=== PATIENT | female | born 1955 | race African-American/Black ===

== ENCOUNTER 2024-05-31 18:54 | Emergency (ER) | payer MEDICARE, MEDICAID ==
[~2024-05-31] VITALS: Ht 162.6 cm; Wt 50.0 kg
[2024-05-31] MEDS ORDERED: ALBUTEROL (19:10)
[2024-05-31] MEDS ORDERED: PREDNISONE (19:10)
[2024-05-31] MEDS ORDERED: COMBIVENT (19:10)
[2024-05-31] MEDS: METHYLPREDNISOLONE SOD SUCC 125MG/2ML (ACT-O-VIAL) IV STA (21:11)
[2024-05-31 21:35] LABS: BASOPHILS % 0.4 % (0.0-2.0); EOSINOPHILS % 0.2 % (0.0-5.0); HEMATOCRIT. 37.6 % (36.0-48.0); LYMPHOCYTES % 13.9 % (20.0-50.0); MEAN CORPUSCULAR HEMOGLOBIN 30.8 pg (28.0-32.0); MEAN CORPUSCULAR HGB CONC 31.8 g/dL (31.0-37.0); MEAN CORPUSCULAR VOLUME 96.6 fL (81.0-99.0); MEAN PLATELET VOLUME 8.1 fl (7.4-10.4); MONOCYTES % 7.2 % (2.0-8.0); NEUTROPHILS % 78.3 % (40.0-76.0); PLATELET 289 x1000/uL (130-400); RED BLOOD CELL COUNT 3.89 mill/uL (4.2-5.4); RED CELL DISTRIBUTION WIDTH 15.9 % (11.6-14.6)
[2024-05-31 21:41] LABS: CHLORIDE 104 mEq/L (98-107); POTASSIUM 3.7 mEq/L (3.5-5.1); SODIUM 143 mEq/L (136-145)
[2024-05-31 21:42] LABS: CALCIUM 9.7 mg/dL (8.7-10.4); CARBON DIOXIDE 31 mEq/L (21-32)
[2024-05-31 21:46] LABS: INR 1.3; PROTHROMBIN TIME 13.8 sec (9.6-11.0)
[2024-05-31 21:47] LABS: CREATININE 0.7 mg/dL (0.6-1.0); GLUCOSE 97 mg/dL (70-105); UREA NITROGEN BLOOD 15 mg/dL (9-23)
[2024-05-31 21:49] VITALS: PULSE 116; RESP 20; O2SAT 95
[2024-05-31 21:49] LABS: ALANINE AMINOTRANSFERASE 18 IU/L (10-49); ALBUMIN 3.8 g/dL (3.2-4.8); ASPARTATE AMINOTRANSFERASE 30 IU/L (<34); BILIRUBIN TOTAL 0.3 mg/dL (0.1-1.0); PROTEIN TOTAL 6.8 g/dL (6.0-8.3); TROPONIN I HIGH SENSITIVITY 15 ng/L (3.0-34)
[2024-05-31] MEDS: ALBUTEROL (0.083%) 2.5MG/3ML NEB HHN STA (21:49)
[2024-05-31] MEDS: IPRATROPIUM BROMIDE (0.02%) 0.5MG/2.5ML NEB HHN STA (21:50)
[2024-05-31 22:01] LABS: BILIRUBIN DIRECT < 0.1 mg/dL (<=3.0)
[2024-05-31 23:10] VITALS: O2SAT 93
[2024-05-31] MEDS ORDERED: LEVOFLOXACIN 750MG PREMIX 150 ML IV ONE (23:45)
[2024-06-01] MEDS: AZITHROMYCIN 500MG/250ML 250 ML IV STA (00:03)
[2024-06-01] MEDS ORDERED: DOCUSATE SODIUM 100MG CAPSULE PO PRN (01:00)
[2024-06-01] MEDS ORDERED: IPRATROPIUM/ALBUTEROL 0.5-3(2.5)MG/3ML NEB HHN PRN (01:00)
[2024-06-01] MEDS ORDERED: ACETAMINOPHEN 325MG TABLET PO PRN (01:00)
[2024-06-01] MEDS ORDERED: POTASSIUM CHLORIDE 20MEQ TABLET SR PO PRN (01:00)
[2024-06-01] MEDS ORDERED: HYDROCODONE/ACETAMINOPHEN 5/325MG TABLET PO PRN (01:00)
[2024-06-01] MEDS ORDERED: MAGNESIUM/ALUMINUM HYDROXIDE/SIMETHICONE 30ML UDC PO PRN (01:00)
[2024-06-01] MEDS ORDERED: ONDANSETRON HCL 4MG/2ML INJ IV PRN (01:00)
[2024-06-01] MEDS ORDERED: CLONIDINE 0.1MG TABLET PO PRN (01:00)
[2024-06-01] MEDS: CEFTRIAXONE 1GM/50ML 50 ML IV ONE (01:11)
[2024-06-01 04:10] LABS: TROPONIN I HIGH SENSITIVITY 15 ng/L (3.0-34)
[2024-06-01] MEDS: ENOXAPARIN 40MG/0.4ML SYR SUBCUT SCH (04:47)
[2024-06-01] MEDS: CEFTRIAXONE 1GM/50ML 50 ML IV SCH (04:47)
[2024-06-01] MEDS ORDERED: NALOXONE HCL 0.4MG/ML VIAL IV PRN (06:45)
[2024-06-01] MEDS: ENOXAPARIN 30MG/0.3ML SYR SUBCUT SCH (07:00)
[2024-06-01 08:30] VITALS: O2SAT 94
[2024-06-01 09:50] VITALS: BP 126/75; PULSE 99; RESP 26; TEMP 37.16964
[2024-06-01 10:10] VITALS: O2SAT 98
[2024-06-02] MEDS ORDERED: CEFTRIAXONE 1GM/50ML 50 ML IV SCH (01:00)
[2024-06-25] MEDS ORDERED: AMLO5TAB88 PO (23:41)
[2024-06-25] MEDS ORDERED: P20 PO (23:41)
[2024-06-25] MEDS ORDERED: IPRA4AER INH (23:41)
[2024-06-25] MEDS ORDERED: ALBU10.7 (23:47)
[2024-06-25] MEDS ORDERED: GLYC10.7 (23:47)
[2024-06-28] MEDS ORDERED: P20 MT (14:48)
== END 2024-06-01 10:49 | disposition left against medical advice (07) ==
LOC: ER 18:54 → EDBEDREQ 20:57 → EDBEDREQSVC 23:40 → CANBEDREQ 06-01 10:46 → ER 06-01 10:49
DX: J44.0 Chronic obstructive pulmonary disease with (acute) lower respiratory infection (principal); I10 Essential (primary) hypertension
CPT/HCPCS: 99291; 80076; 80048; 83036; 83880; 85025; 85610; 84484; 36415; 71045; 94640; 93970; 96365; 96367; 96375; J2919; J0456; J0696; 94660